=== PATIENT | female | born 1965 | race Caucasian/White ===

== ENCOUNTER 2021-05-26 07:00 | Day surgery (SDC) | payer OTHER ==
[~2021-05-26] VITALS: Ht 162.6 cm; Wt 77.3 kg
[~2021-05-26 07:00] MED LIST: ACYCLOVIR400 MG PO; ALEVE220 MG PO; ANAPROX DS550 MG PO; CHANTIX0.5 MG PO; DOTTI1 EACH TD; EFUDEX40 GM TOP; EXCEDRIN EXTRA1 EAC1 PO; FAMOTIDINE20 MG PO; FEOSOL325 MG PO; IBUPROFEN800 MG PO; LIDOCAINE HCL30 ML TOP; MULTI VITAMIN1 EACH PO; NEURONTIN300 MG PO; NICODERM CQ1 EAC1 TD; OXYCODONE HCL5 MG PO; PIROXICAM20 MG PO; SOMA250 MG PO; SUBOXONE 8 MG-1 EAC1 SL; VITAMIN B122500 MCG PO; VITAMIN C500 M4 PO; VITAMIN D3 COM1 EACH PO; ZOVIRAX400 MG PO
--- NOTE | 2021-05-26 08:58 | NUR ---
05/26/21 0858 Ruth Ann Haley 0860-PATIENT ARRIVED TO PACU ON 4L NC RR EVEN PLACED ON 2L. PATIENT LAYING LEFT LATERAL ABDOMEN SOFT IVF INFUSING. PATIENT AROUSING TO VERBAL STIMULI AND REPOSITIONING SELF IN BED TRYING TO SIT UP. HOB ELEVATED AND ORIENTED TO PACU. PATIENT HAS OLD CUT TO 3RD FINGER ON RIGHT HAND REPORTS "FROM WASHING HANDS ALL DAY" PATIENT EASILY DOZES BACK TO SLEEP.
--- NOTE | 2021-05-26 09:59 | NUR ---
PT ALERT, ORIENTED AND HAS HAD SCOPE BEFORE. PT MENTIONED SHE HAS RIDE WAITING FOR DC. ALL QUESTIONS ASKED ANSWERED, PT REQUESTED PRAYER. WILL FOLLOW
--- NOTE | 2021-05-26 11:14 | OR ---
[facility] [address], [place] [address] Signed DATE OF OPERATION: 05/26/2021 SURGEON: Lala Leonard MD PREOPERATIVE DIAGNOSES: 1. Chronic left lower quadrant abdominal pain. 2. Chronic constipation. 3. Diverticulosis. POSTOPERATIVE DIAGNOSES: 1. Long redundant colon. 2. Hczynjo-yw-slqsheqs sigmoid diverticulosis. 3. Caovhid-vy-pgkmgdhj internal hemorrhoids with associated skin tags. PROCEDURE: Colonoscopy without biopsy. ESTIMATED BLOOD LOSS: None. INDICATIONS: Conchita is a 55-year-old female, asked to see me for a followup colonoscopy. She has a long history of chronic left lower quadrant abdominal pain and constipation. She has also had compression fractures in her back requiring chronic pain medications. She is not sure if her sister had cancer diverticular disease requiring colectomy. In 2007, Conchita underwent her 1st colonoscopy and was not able to go to sleep with Versed and fentanyl. Of course, we knew she had diverticular disease based on the limited colonoscopy. A barium enema confirmed the diverticular disease. In 2017 with monitored anesthesia care, we once again could see she has nhzdxom-jr-muexerjl diverticulosis in her sigmoid colon. She has ongoing symptoms as described above. She is also very worried about her ovary and cervix. Her recent ultrasound, CT scan, and MRI of the abdomen showed her physiologically dilated common bile duct. No other concerns. She was therefore asked to come and see me to repeat her colonoscopy. Despite the fact on the only one who has done her endoscopy, she is quite convinced she has had colonic polyps removed. We had reviewed the records and cannot find any evidence of that. In the office, I had given her a pamphlet on colonoscopy. We reviewed the nature of the test. She understands there is risk including, but not limited to gas bloating, crampy abdominal pain, bleeding, perforation requiring surgery, and missed diagnosis. She always takes a double bowel prep. Because of her long history of chronic pain, she does require a monitored anesthesia care. It worked out well on this occasion once again. Electronically Signed By: LALA LEONARD MD 05/26/21 1114 PATIENT NAME: CONCHITA BOCANEGRA OPERATIVE REPORT DATE OF : 61 REPORT #: [id number] PHYSICIAN: LALA LEONARD MD PCP: COOPER MARCIAL MD REPORT IS CONFIDENTIAL AND NOT TO BE RELEASED WITHOUT AUTHORIZATION [facility] [address] [place] [id number] Signed In addition, she has plate and 7 screws in her ankle. We went ahead and gave her Ancef in that regard. She had expressed understanding and wished to proceed. PROCEDURE NOTE: Conchita was taken into our endoscopy suite and placed in the left lateral decubitus position. She was given IV sedation with propofol per our nurse integrity specialist. A digital rectal exam was performed and this was unremarkable. The adult colonoscope was introduced and advanced under direct visualization of the camera. She has a somewhat long redundant colon. It took extra propofol and abdominal compression and rotating her into the supine position to get the camera around into the cecum itself. Her prep actually was quite good. We could easily see the appendiceal orifice and the ileocecal valve. We took pictures throughout for photodocumentation. Once again, we found no colonic polyps. She has xkasdzj-wg-ivgpxlnv sigmoid diverticulosis. The rectum was unremarkable. Upon retroflexion of the scope, she has ralqkqk-tk-btgaergz internal hemorrhoids with an associated skin tag. After this, the gas was suctioned out and the colonoscope removed. Conchita tolerated the procedure quite well. RECOMMENDATIONS: Conchita is welcome to follow up my office in 10 years for repeat screening colonoscopy. In the meantime, she can certainly use a fiber product and polyethylene glycol to help with her constipation. Lala Leonard MD ALB/MODL /[id number] cc: MD Cooper Carlson MD Copies: LALA LEONARD MD Electronically Signed By: LALA LEONARD MD 05/26/21 1114 PATIENT NAME: CONCHITA BOCANEGRA OPERATIVE REPORT DATE OF : 61 REPORT #: [id number] PHYSICIAN: LALA LEONARD MD PCP: COOPER MARCIAL MD REPORT IS CONFIDENTIAL AND NOT TO BE RELEASED WITHOUT AUTHORIZATION [facility] [address] [facility] [place], [place] [address] Signed COOPER MARCIAL MD ~ Electronically Signed By: LALA LEONARD MD 05/26/21 1114 PATIENT NAME: CONCHITA BOCANEGRA OPERATIVE REPORT DATE OF : 61 REPORT #: [id number] PHYSICIAN: LALA LEONARD MD PCP: COOPER MARCIAL MD REPORT IS CONFIDENTIAL AND NOT TO BE RELEASED WITHOUT AUTHORIZATION
== END 2021-05-26 09:23 | disposition home or self-care (01) ==
LOC: OPS 07:00 → DS 07:00 → OPS 07:30
PROVIDERS: ATTEND Colon & Rectal Surgery
PROC: 0DJD8ZZ Inspection of Lower Intestinal Tract, Via Natural or Artificial Opening Endoscopic (ICD-10-PCS; principal; 2021-05-26 07:30)
DX: K57.30 Diverticulosis of large intestine without perforation or abscess without bleeding (principal); Q43.8 Other specified congenital malformations of intestine; K64.8 Other hemorrhoids; K59.09 Other constipation; F17.210 Nicotine dependence, cigarettes, uncomplicated
CPT/HCPCS: J0690; J2001; J2704; J7121